=== PATIENT | female | born 1975 | race African-American/Black ===

== ENCOUNTER 2022-01-01 07:45 | Emergency (ER) | payer MEDICAID ==
[~2022-01-01] VITALS: Ht 152.4 cm; Wt 54.0 kg
[2022-01-01 08:49] LABS: HEMATOCRIT. 25.3 % (36.0-48.0); HEMOGLOBIN. 7.5 g/dL (12.0-16.0); MEAN CORPUSCULAR HEMOGLOBIN 15.3 pg (28.0-32.0); MEAN CORPUSCULAR VOLUME 51.5 fL (81.0-99.0); MEAN PLATELET VOLUME 8.6 fl (7.4-10.4); PLATELET 423 x1000/uL (130-400); RED BLOOD CELL COUNT 4.92 mill/uL (4.2-5.4); RED CELL DISTRIBUTION WIDTH 19.2 % (11.6-14.6)
[2022-01-01 08:55] LABS: CHLORIDE 106 mEq/L (98-107)
[2022-01-01 09:15] LABS: HCG SCREEN NEGATIVE
[2022-01-01 10:04] LABS: PLATELET ESTIMATE INCREASED
[2022-01-01] MEDS ORDERED: IOHEXOL-300 100 ML BOTTLE ONE (10:17)
[2022-01-01 11:42] LABS: CLARITY URINE CLEAR (CLEAR); COLOR URINE YELLOW (YELLOW); KETONES URINE NEGATIVE (NEGATIVE); LEUKOCYTE ESTERASE URINE NEGATIVE (NEGATIVE); NITRITE URINE NEGATIVE (NEGATIVE); OCCULT BLOOD URINE NEGATIVE (NEGATIVE); PH URINE 6.5 (4.5-8.0); PROTEIN URINE NEGATIVE (NEGATIVE); SPECIFIC GRAVITY URINE 1.064 (1.005-1.030); UROBILINOGEN URINE 0.2 E.U./dL (0.2-1.0)
[2022-01-01 13:00] VITALS: BP 128/78
== END 2022-01-01 13:03 | disposition home or self-care (01) ==
LOC: ER 07:45
DX: N63.0 Unspecified lump in unspecified breast (principal); D61.818 Other pancytopenia; R10.31 Right lower quadrant pain; Z98.890 Other specified postprocedural states
CPT/HCPCS: 36415; 74177; 80053; 81003; 81025; 84703; 85025; 99285; Q9967